=== PATIENT | female | born 1995 | race Caucasian/White ===

== ENCOUNTER 2019-07-31 10:52 | Emergency (ER) | payer OTHER ==
[~2019-07-31] VITALS: Ht 172.7 cm; Wt 77.1 kg
[~2019-07-31 10:52] MED LIST: ALBUTEROL17 GM IH; AMOX TR-K CLV 21 TAB PO; PROVENTIL2 MG PO
== END 2019-07-31 14:30 | disposition home or self-care (01) ==
LOC: ER 10:52
DX: J03.80 Acute tonsillitis due to other specified organisms (principal); R50.9 Fever, unspecified

== ENCOUNTER 2021-12-17 07:25 | Emergency (ER) | payer OTHER ==
[~2021-12-17] VITALS: Ht 172.7 cm; Wt 82.6 kg
[2021-12-17] MEDS ORDERED: CLEOCIN HCL300 MG PO (08:57)
== END 2021-12-17 09:26 | disposition home or self-care (01) ==
LOC: ER 07:25
DX: S90.121A Contusion of right lesser toe(s) without damage to nail, initial encounter (principal); S90.31XA Contusion of right foot, initial encounter; L03.031 Cellulitis of right toe; X58.XXXA Exposure to other specified factors, initial encounter; Y93.9 Activity, unspecified; Y92.9 Unspecified place or not applicable; Y99.9 Unspecified external cause status